=== PATIENT | female | born 1965 | race Caucasian/White ===

== ENCOUNTER → 2017-03-29 | Outpatient (CLI) | payer OTHER ==
--- NOTE | ~2017-03-29 | EKG ---
[address] [place] [address] ELECTROCARDIOGRAM REPORT Name: RHIANNON MARTE [id number]: [facility]/29/17 Attend Phys: Moshe Pickard MD, F Discharge: Date of : 65 Report #: [id number] THIS REPORT FOR: //name// [facility] [place] [place] Test Date: 2017-03-29 Test Time: 10:35:07 Pat Name: RHIANNON MARTE Department: Room: Gender: F Genetic Physician: Kevon SANTORO : 1965 Requested By: Moshe Pickard Order Number: [id number] MD: Efren Valdes Measurements Intervals Delong Rate: 76 P: 59 [place]: 141 QRS: 5 QRSD: 96 T: 58 QT: 399 QTc: 449 Interpretive Statements Sinus rhythm Borderline low voltage, extremity leads Compared to ECG 12/22/2006 22:40:30 Sinus arrhythmia no longer present Electronically Signed On 03-29-2017 11:10:18 CDT by Efren Valdes [email or web address] <ELECTRONICALLY SIGNED> By: Efren Valdes MD 03/29/17 1110 1035 103 Efren Valdes MD /BRANDYN
[2017-03-29 10:12] LABS: BASOPHILS 0.3 % (0.0-2.0); EOSINOPHILS 0.7 % (0.0-3.0); HEMATOCRIT 45.2 % (37.0-47.0); HEMOGLOBIN 15.4 gm/dL (12.0-15.0); LYMPHOCYTES 16.9 % (24.0-44.0); MCH 28.6 pg (26.0-34.0); MCHC 34.1 g/dL (28.0-37.0); MCV 83.7 fL (80.0-100.0); MONOCYTES 4.2 % (1.0-8.0); PLATELET COUNT 254 thou/uL (150-400); POLYS 77.9 % (36.0-66.0); RDW 13.7 % (10.5-14.5); WBC 10.3 thou/uL (4.0-11.0)
[2017-03-29 10:15] LABS: MANUAL DIFF NO
[2017-03-29 10:24] LABS: CALCIUM 9.6 mg/dL (8.5-10.1); POTASSIUM 3.7 mmol/L (3.5-5.1)
[2017-03-29 10:28] LABS: ALBUMIN 4.1 g/dL (3.4-5.0); TOTAL BILIRUBIN 0.6 mg/dL (<0.1-1.0)
[2017-03-29 11:18] LABS: FOLIC ACID 15.5 ng/mL (8.6-58.9)
== END ==
LOC: RAD 09:25
PROVIDERS: Surgery
DX: I10 Essential (primary) hypertension (principal); K21.9 Gastro-esophageal reflux disease without esophagitis; E66.01 Morbid (severe) obesity due to excess calories; Z86.718 Personal history of other venous thrombosis and embolism

== ENCOUNTER → 2017-08-13 | Outpatient (CLI) | payer OTHER ==
[~2017-08-13] MED LIST: ADIPEX-P37.5 MG PO; BIOTIN5000 MCG PO; CITRATE OF MAG296 ML PO; ELIQUIS5 MG PO; HYDROCODONE-ACE15 ML PO; LASIX 40 MG TAB40 M2 PO; LIPITOR20 MG PO; PHENTERMINE H37.5 M1 PO; PIROXICAM20 MG PO; VITAMIN D350000 UNIT PO; WELLBUTRIN 100100 MG PO; WELLBUTRIN XL300 MG PO
== END ==
LOC: RAD 09:17
DX: K21.9 Gastro-esophageal reflux disease without esophagitis (principal); R11.10 Vomiting, unspecified

== ENCOUNTER 2017-11-26 20:22 | Emergency (ER) | payer OTHER ==
[~2017-11-26] VITALS: Ht 154.9 cm; Wt 59.9 kg
[~2017-11-26 20:22] MED LIST changes: -CITRATE OF MAG296 ML PO; -PHENTERMINE H37.5 M1 PO
[2017-11-26] MEDS ORDERED: PHENTERMINE H37.5 M1 PO (21:51)
[2017-11-26 22:05] LABS: ABSOLUTE NEUTROPHILS 5.3 thou/uL (1.4-8.2); BASOPHILS 0.9 % (0.0-2.0); EOSINOPHILS 1.9 % (0.0-3.0); HEMATOCRIT 41.9 % (37.0-47.0); HEMOGLOBIN 14.1 gm/dL (12.0-15.0); LYMPHOCYTES 25.8 % (24.0-44.0); MCH 28.7 pg (26.0-34.0); MCHC 33.7 g/dL (28.0-37.0); MCV 85.3 fL (80.0-100.0); MONOCYTES 4.9 % (1.0-8.0); PLATELET COUNT 200 thou/uL (150-400); POLYS 66.5 % (36.0-66.0); RBC 4.91 mil/uL (4.20-5.00); RDW 13.8 % (10.5-14.5); WBC 7.9 thou/uL (4.0-11.0)
[2017-11-26 22:07] LABS: URINE BLOOD TRACE (Negative); URINE CLARITY CLEAR; URINE COLOR YELLOW; URINE GLUCOSE-RANDOM* NEGATIVE (Negative); URINE KETONES NEGATIVE (Negative); URINE LEUKOCYTES NEGATIVE (Negative); URINE NITRITE NEGATIVE (Negative); URINE PROTEIN (DIPSTICK) NEGATIVE (Negative); URINE SPECIFIC GRAVITY >= 1.030 (1.005-1.035); URINE UROBILINOGEN 0.2 E.U./dl (0.2-1.0)
[2017-11-26 22:08] LABS: ICTOTEST (BILI CONFIRMATORY) Negative (Negative); URINE BILIRUBIN NEGATIVE (Negative)
[2017-11-26 22:30] LABS: ANION GAP 10 mmol/L (7-16); BUN 17 mg/dL (7-18); CALCIUM 8.8 mg/dL (8.5-10.1); CHLORIDE 107 mmol/L (98-107); CO2 23 mmol/L (21-32); GLUCOSE 96 mg/dL (74-106); POTASSIUM 3.5 mmol/L (3.5-5.1); SODIUM 140 mmol/L (136-145)
[2017-11-26 22:35] LABS: ALBUMIN 3.8 g/dL (3.4-5.0); DIRECT BILIRUBIN < 0.1 mg/dL (<0.1-0.3); SGOT 20 U/L (15-37); SGPT 18 U/L (30-65); TOTAL BILIRUBIN 0.3 mg/dL (<0.1-1.0); TOTAL PROTEIN 7.2 g/dL (6.4-8.2)
[2017-11-27] MEDS ORDERED: CITRATE OF MAG296 ML PO (00:31)
== END 2017-11-27 00:56 | disposition home or self-care (01) ==
LOC: ER 20:22
PROVIDERS: Emergency Medicine
DX: K62.89 Other specified diseases of anus and rectum (principal); K59.00 Constipation, unspecified; I10 Essential (primary) hypertension; E78.00 Pure hypercholesterolemia, unspecified; G43.909 Migraine, unspecified, not intractable, without status migrainosus; G47.30 Sleep apnea, unspecified; Z90.49 Acquired absence of other specified parts of digestive tract; Z86.73 Personal history of transient ischemic attack (TIA), and cerebral infarction without residual deficits; Z88.2 Allergy status to sulfonamides; Z88.5 Allergy status to narcotic agent; Z91.040 Latex allergy status